=== PATIENT | female | born 1945 | race African-American/Black ===

== ENCOUNTER 2016-10-25 10:18 | Emergency (ER) | payer BC ==
[~2016-10-25] VITALS: Ht 160 cm; Wt 64.0 kg
[2016-10-25] MEDS ORDERED: SODIUM CHLORIDE 0.9% 500 ML IV ONE (11:19)
[2016-10-25 11:37] LABS: EOSINOPHILS % 1.7 % (0.0-5.0); HEMATOCRIT. 40.8 % (36.0-48.0); HEMOGLOBIN. 13.5 g/dL (12.0-16.0); LYMPHOCYTES % 19.2 % (20.0-50.0); MEAN CORPUSCULAR HEMOGLOBIN 26.2 pg (28.0-32.0); MEAN CORPUSCULAR VOLUME 79.4 fL (81.0-99.0); MEAN PLATELET VOLUME 7.9 fl (7.4-10.4); MONOCYTES % 8.9 % (2.0-8.0); NEUTROPHILS % 69.2 % (40.0-76.0); PLATELET 297 x1000/uL (130-400); RED BLOOD CELL COUNT 5.14 mill/uL (4.2-5.4); RED CELL DISTRIBUTION WIDTH 14.7 % (11.6-14.6)
[2016-10-25 11:51] LABS: CARBON DIOXIDE 27 mEq/L (21-32); CHLORIDE 106 mEq/L (98-107)
[2016-10-25 12:59] VITALS: BP 140/79
[2016-10-25] MEDS ORDERED: HYDROCODONE/APAP 7.5/325MG 1 TAB TABLET PO ONE (13:00)
[2016-10-25] MEDS ORDERED: PIPERACILLIN/TAZ 3.375G PREMIX 50 ML IV ONE (15:45)
== END 2016-10-25 17:22 | disposition left against medical advice (07) ==
LOC: ER 12:12
DX: M27.2 Inflammatory conditions of jaws (principal); K04.7 Periapical abscess without sinus; K02.9 Dental caries, unspecified; I10 Essential (primary) hypertension; J01.90 Acute sinusitis, unspecified; E11.9 Type 2 diabetes mellitus without complications; K44.9 Diaphragmatic hernia without obstruction or gangrene; Z71.89 Other specified counseling; Z98.890 Other specified postprocedural states
CPT/HCPCS: 36415; 70487; 70491; 80053; 83690; 85025; 96365; 99285; J2543; J7030